=== PATIENT | male | born 1995 | race Two or more races ===

== ENCOUNTER 2024-03-19 17:18 | Emergency (ER) | payer OTHER ==
[~2024-03-19] VITALS: Ht 170.2 cm; Wt 61.5 kg
[2024-03-19 18:39] VITALS: BP 127/71; PULSE 86; RESP 16; TEMP 98.3; O2SAT 97
[2024-03-19] MEDS ORDERED: CYCL-837 PO (19:59)
[2024-03-19] MEDS ORDERED: IBUP-1454 PO (19:59)
[2024-03-19] MEDS: IBUPROFEN 600 MG TAB PO ONE (20:17)
== END 2024-03-19 20:31 | disposition home or self-care (01) ==
LOC: ER 17:18
DX: S39.012A Strain of muscle, fascia and tendon of lower back, initial encounter (principal); X50.0XXA Overexertion from strenuous movement or load, initial encounter; Y93.89 Activity, other specified; Y92.89 Other specified places as the place of occurrence of the external cause; Y99.8 Other external cause status